=== PATIENT | female | born 1955 | race Caucasian/White ===

== ENCOUNTER → 2017-08-11 | Outpatient (CLI) | payer BC ==
[~2017-08-11] MED LIST: ACCUPRIL10 MG; ACTONEL35 MG PO; ASPRIN; ATENOLOL25 MG PO; AVELOX400 MG PO; FISH OIL1000 MG PO; MUCINEX 60600 MG/TA1 PO; MULTIPLE VITAMI1 CAP PO; NASONEX SPRAY; PREMARIN0.3 MG PO; SIMVASTATIN5 MG PO
== END ==
LOC: MC.RAD 13:59
DX: Z12.31 Encounter for screening mammogram for malignant neoplasm of breast (principal)

== ENCOUNTER → 2018-06-23 | Outpatient (CLI) | payer BC | LOC: COL.LAB 14:17 | DX: Z01.89 Encounter for other specified special examinations (principal) ==

== ENCOUNTER → 2018-09-15 | Outpatient (CLI) | payer BC | LOC: MC.RAD 08:40 | DX: Z12.31 Encounter for screening mammogram for malignant neoplasm of breast (principal) ==

== ENCOUNTER → 2019-09-15 | Outpatient (CLI) | payer BC | LOC: COL.RAD 09:46 | DX: K57.32 Diverticulitis of large intestine without perforation or abscess without bleeding (principal); K74.60 Unspecified cirrhosis of liver; Z98.890 Other specified postprocedural states | CPT/HCPCS: Q9967 ==

== ENCOUNTER → 2019-10-10 | Outpatient (CLI) | payer BC | LOC: MC.RAD 16:43 | DX: Z12.31 Encounter for screening mammogram for malignant neoplasm of breast (principal) ==

== ENCOUNTER → 2020-12-05 | Outpatient (CLI) | payer BC | LOC: MC.RAD 11-12 10:30 | DX: Z12.31 Encounter for screening mammogram for malignant neoplasm of breast (principal) ==

== ENCOUNTER 2021-12-17 11:43 | Emergency (ER) | payer BC ==
[~2021-12-17] VITALS: Ht 154.9 cm; Wt 61.4 kg
[2021-12-17 11:48] VITALS: TEMP 96
[2021-12-17 12:02] LABS: BASO # 0.1 K/mm3 (0.0-0.2); BASO % 0.8 % (0.0-2.0); EOS # 0.2 K/mm3 (0.0-0.7); GRAN # 6.9 K/mm3 (1.4-6.5); GRAN % 66.2 % (42.2-75.2); HEMATOCRIT 37.1 % (37.0-47.0); HEMOGLOBIN 12.5 g/dl (12.5-16.0); LYMPH # 2.5 K/mm3 (1.2-3.4); LYMPH % 23.7 % (20.0-51.0); MEAN CELL VOLUME 84 fl (80.0-100.0); MEAN CORPUSCULAR HEMOGLOBIN 28 pg (27-31); MEAN CORPUSCULAR HGB CONC 34 g/dl (33.0-37.0); MEAN PLATELET VOLUME 9.9 fl (7.4-10.4); MONO # 0.7 K/mm3 (0.1-0.6); MONO % 6.7 % (1.7-9.3); PLATELET COUNT 276 K/mm3 (130-400); REDCELL DISTRIBUTION WIDTH-CV 14.6 % (11.5-14.5)
[2021-12-17 13:05] LABS: ALANINE AMINOTRANSFERASE 24 U/L (0-55); ALKALINE PHOSPHATASE 44 U/L (40-150); ANION GAP 10 mmol/L (7-16); AST,SGOT 26 U/L (5-34); BILIRUBIN,TOTAL 0.7 mg/dL (0.2-1.2); BLOOD UREA NITROGEN 26 mg/dL (10-20); CALCIUM 7.8 mg/dL (8.4-10.2); CARBON DIOXIDE 19 mmol/L (23-31); CHLORIDE 110 mmol/L (98-107); CREATININE, serum 0.92 mg/dL (0.57-1.11); GLUCOSE 138 mg/dL (70-99); SODIUM 139 mmol/L (136-145); TOTAL PROTEIN 5.1 gm/dL (6.2-8.1)
[2021-12-17 13:26] LABS: TSH w REFLEX 1.071 uIU/mL (0.350-4.940)
[2021-12-17 13:35] LABS: TROPONIN-I < 0.010 ng/mL (0.00-0.033)
[2021-12-17] MEDS ORDERED: COREG 6.256.25 MG/TA PO (14:18)
[2021-12-17] MEDS ORDERED: ACCUPRIL20TAB PO (14:19)
[2021-12-17] MEDS ORDERED: GLUCOSAMIN 500 (14:20)
[2021-12-17] MEDS ORDERED: PROBIOTIC BLEN1 EACH PO (14:20)
[2021-12-17] MEDS ORDERED: OSCAL 500 TAB500 MG PO (14:20)
[2021-12-17] MEDS ORDERED: ALA 100MG PO (14:21)
[2021-12-17 16:00] VITALS: BP 133/89; PULSE 68
== END 2021-12-17 16:14 | disposition home or self-care (01) ==
LOC: COL.ER 11:43
PROVIDERS: Emergency Medicine
DX: R55 Syncope and collapse (principal); I10 Essential (primary) hypertension; Z20.822 Contact with and (suspected) exposure to COVID-19; Z79.899 Other long term (current) drug therapy
CPT/HCPCS: J2405; J7030

== ENCOUNTER → 2022-01-02 | Outpatient (CLI) | payer BC ==
[~2022-01-02] MED LIST changes: +ACCUPRIL20TAB PO; +ALA 100MG PO; +COREG 6.256.25 MG/TA PO; +GLUCOSAMIN 500; +OSCAL 500 TAB500 MG PO; +PROBIOTIC BLEN1 EACH PO
== END ==
LOC: MC.RAD 10:11
DX: Z12.31 Encounter for screening mammogram for malignant neoplasm of breast (principal)

== ENCOUNTER → 2022-12-22 | Outpatient (CLI) | payer BC | LOC: COL.RAD 07:51 | DX: K57.32 Diverticulitis of large intestine without perforation or abscess without bleeding (principal); K76.0 Fatty (change of) liver, not elsewhere classified | CPT/HCPCS: Q9967 ==

== ENCOUNTER → 2023-02-22 | Outpatient (CLI) | payer BC | LOC: MC.RAD 09:15 | DX: Z12.31 Encounter for screening mammogram for malignant neoplasm of breast (principal) ==

== ENCOUNTER → 2023-03-02 | Outpatient (REF) | payer BC | END | disposition still patient (30) | LOC: ZCOL.LAB 17:32 | DX: K14.0 Glossitis (principal) ==